=== PATIENT | female | born 1970 | race Caucasian/White ===

== ENCOUNTER → 2021-03-16 | Day surgery (SDC) | payer OTHER ==
[~2021-03-16] VITALS: Ht 160 cm; Wt 56.7 kg
[~2021-03-16] MED LIST: ASPIRIN EC81 MG PO; COLACE100 MG PO; DAILY VALUE1 EACH PO; FLONASE ALLER15.8 ML; INCRUSE ELLI62.5 MCG INH; LIPITOR20 MG PO
== END | disposition home or self-care (01) ==
LOC: FAS 07:51
DX: Z12.11 Encounter for screening for malignant neoplasm of colon (principal); K63.5 Polyp of colon; K57.30 Diverticulosis of large intestine without perforation or abscess without bleeding; E78.00 Pure hypercholesterolemia, unspecified; F17.210 Nicotine dependence, cigarettes, uncomplicated
CPT/HCPCS: J2250; J2704; J7120